=== PATIENT | female | born 1990 | race African-American/Black ===

== ENCOUNTER 2017-04-27 07:23 | Inpatient (IN) | payer MEDICAID, OTHER ==
[~2017-04-27] VITALS: Ht 162.6 cm; Wt 99.8 kg
[2017-04-27] MEDS ORDERED: MAGNESIUM/ALUMINUM HYDROXIDE/SIMETHICONE 30ML UDC PO STA (09:03)
[2017-04-27] MEDS ORDERED: VISCOUS LIDOCAINE 2% 15 ML UDC PO STA (09:03)
[2017-04-27] MEDS ORDERED: FAMOTIDINE 20MG/2ML VIAL IV STA (09:03)
[2017-04-27] MEDS ORDERED: ONDANSETRON HCL 4MG/2ML VIAL IV STA (09:03)
[2017-04-27] MEDS ORDERED: PANTOPRAZOLE SODIUM 40 MG/VIAL IV STA (09:03)
[2017-04-27] MEDS ORDERED: SODIUM CHLORIDE 0.9% 1,000 ML IV ONE ×2 (09:03→10:45)
[2017-04-27 09:28] LABS: BASOPHILS % 0.4 % (0.0-2.0); EOSINOPHILS % 0.1 % (0.0-5.0); HEMATOCRIT. 40.3 % (36.0-48.0); HEMOGLOBIN. 13.7 g/dL (12.0-16.0); LYMPHOCYTES % 14.8 % (20.0-50.0); MEAN CORPUSCULAR VOLUME 94.3 fL (81.0-99.0); MEAN PLATELET VOLUME 7.9 fl (7.4-10.4); MONOCYTES % 13.1 % (2.0-8.0); NEUTROPHILS % 71.6 % (40.0-76.0); PLATELET 240 x1000/uL (130-400); RED BLOOD CELL COUNT 4.28 mill/uL (4.2-5.4); RED CELL DISTRIBUTION WIDTH 14.1 % (11.6-14.6)
[2017-04-27 09:31] LABS: CHLORIDE 105 mEq/L (98-107)
[2017-04-27 09:39] LABS: CARBON DIOXIDE 23 mEq/L (21-32)
[2017-04-27 09:40] LABS: ETHANOL BLOOD < 10 mg/dL
[2017-04-27 09:50] LABS: CLARITY URINE CLOUDY (CLEAR); COLOR URINE DARK YELLOW (YELLOW); GLUCOSE URINE NEGATIVE (NEGATIVE); KETONES URINE 3+ (NEGATIVE); LEUKOCYTE ESTERASE URINE NEGATIVE (NEGATIVE); NITRITE URINE NEGATIVE (NEGATIVE); OCCULT BLOOD URINE 3+ (NEGATIVE); PROTEIN URINE 2+ (NEGATIVE)
[2017-04-27] MEDS ORDERED: ONDANSETRON HCL 4MG/2ML VIAL IV ONE (10:45)
[2017-04-27] MEDS ORDERED: DEXT 5%/0.45% NACL 500 ML IV ONE (10:45)
[2017-04-27] MEDS ORDERED: METOCLOPRAMIDE HCL 10MG TABLET PO ONE (12:45)
[2017-04-27 15:45] VITALS: BP 134/80
[2017-04-27 16:00] VITALS: BP 134/80
[2017-04-27] MEDS: SODIUM CHLORIDE 0.9% 1,000 ML IV SCH (17:45)
[2017-04-27] MEDS ORDERED: POTASSIUM CHLORIDE 20MEQ TABLET SR PO NR (17:45)
[2017-04-27] MEDS: METOCLOPRAMIDE HCL 10MG/2ML VIAL IV SCH ×2 (18:40→23:37)
[2017-04-27] MEDS ORDERED: OMEP40CA34 PO (19:35)
[2017-04-27] MEDS ORDERED: METO-293 PO (19:35)
[2017-04-27 20:00] VITALS: BP 107/66
[2017-04-27] MEDS: CEFTRIAXONE 1 G PREMIX 50 ML IV SCH (20:50)
[2017-04-27] MEDS: ENOXAPARIN 30MG/0.3ML SYR SUBCUT SCH (20:50)
[2017-04-27] MEDS ORDERED: KCL 20MEQ/100ML PREMIX 100 ML IV NR (21:00)
[2017-04-28] VITALS: BP 135/83
[2017-04-28 00:53] LABS: *AMPHETAMINES SCREEN URINE NEGATIVE (NEGATIVE); *BARBITURATES SCREEN URINE NEGATIVE (NEGATIVE); *BENZODIAZEPINES SCREEN URINE NEGATIVE (NEGATIVE); *COCAINE SCREEN URINE NEGATIVE (NEGATIVE); METHADONE URINE SCREEN NEGATIVE (NEGATIVE); OPIATES URINE SCREEN NEGATIVE (NEGATIVE); PHENCYCLIDINE URINE SCREEN NEGATIVE (NEGATIVE)
[2017-04-28 01:17] LABS: CANNABINOID URINE SCREEN PRESUMTIVE POSITIVE (NEGATIVE)
[2017-04-28 04:00] VITALS: BP 122/76
[2017-04-28] MEDS: MORPHINE SULFATE 2 MG/ML CPJ (NOT FOR IM USE) IV PRN ×3 (06:13→17:34)
[2017-04-28] MEDS: METOCLOPRAMIDE HCL 10MG/2ML VIAL IV SCH ×4 (06:15→23:20)
[2017-04-28] MEDS: SODIUM CHLORIDE 0.9% 1,000 ML IV SCH (06:16)
[2017-04-28 08:00] VITALS: BP 115/67
[2017-04-28] MEDS ORDERED: PANTOPRAZOLE SODIUM 40 MG/VIAL IV SCH (09:00)
[2017-04-28] MEDS: ENOXAPARIN 30MG/0.3ML SYR SUBCUT SCH ×2 (09:16→21:10)
[2017-04-28 12:00] VITALS: BP 128/72
[2017-04-28] MEDS ORDERED: POTASSIUM CHLORIDE 20MEQ TABLET SR PO NR (14:30)
[2017-04-28 16:00] VITALS: BP 125/86
[2017-04-28 20:00] VITALS: BP 138/85
[2017-04-28] MEDS: CEFTRIAXONE 1 G PREMIX 50 ML IV SCH (21:09)
[2017-04-28] MEDS: PANTOPRAZOLE SODIUM 40 MG/VIAL IV SCH (21:10)
[2017-04-29] VITALS: BP 103/70
[2017-04-29 04:00] VITALS: BP 131/73
[2017-04-29] MEDS: METOCLOPRAMIDE HCL 10MG/2ML VIAL IV SCH ×3 (05:49→18:14)
[2017-04-29 08:00] VITALS: BP 139/74
[2017-04-29] MEDS: PANTOPRAZOLE SODIUM 40 MG/VIAL IV SCH ×2 (09:09→21:23)
[2017-04-29] MEDS: ENOXAPARIN 30MG/0.3ML SYR SUBCUT SCH ×2 (09:09→21:23)
[2017-04-29] MEDS: SODIUM CHLORIDE 0.9% 1,000 ML IV SCH ×2 (09:10→21:23)
[2017-04-29] MEDS: MORPHINE SULFATE 2 MG/ML CPJ (NOT FOR IM USE) IV PRN ×2 (11:08→21:24)
[2017-04-29 12:00] VITALS: BP 114/71
[2017-04-29] MEDS ORDERED: SIMETHICONE 80MG TABLET CHEW PO PRN (12:45)
[2017-04-29] MEDS ORDERED: SIMETHICONE 80MG TABLET CHEW PO SCH (12:45)
[2017-04-29 16:00] VITALS: BP 126/80
[2017-04-29 20:00] VITALS: BP 113/52
[2017-04-29 20:03] LABS: HCG SCREEN NEGATIVE
[2017-04-29] MEDS: CEFTRIAXONE 1 G PREMIX 50 ML IV SCH (21:24)
[2017-04-30] VITALS: BP 97/70
[2017-04-30] MEDS: METOCLOPRAMIDE HCL 10MG/2ML VIAL IV SCH ×2 (00:01→05:45)
[2017-04-30 04:00] VITALS: BP 118/76
[2017-04-30] MEDS: ENOXAPARIN 30MG/0.3ML SYR SUBCUT SCH (09:48)
[2017-04-30] MEDS: PANTOPRAZOLE SODIUM 40 MG/VIAL IV SCH (09:48)
[2017-04-30] MEDS ORDERED: MY80 PO (10:40)
[2017-04-30 10:44] VITALS: BP 115/78
== END 2017-04-30 12:50 | disposition home or self-care (01) | DRG 241 ==
LOC: ER 07:51 → 6EST 12:53 → ENRESERV 13:38
PROVIDERS: ADMIT Internal Medicine; ATTEND Internal Medicine
DX: K29.50 Unspecified chronic gastritis without bleeding (principal); N39.0 Urinary tract infection, site not specified; D72.821 Monocytosis (symptomatic); E87.6 Hypokalemia; F12.90 Cannabis use, unspecified, uncomplicated; J45.909 Unspecified asthma, uncomplicated; K21.9 Gastro-esophageal reflux disease without esophagitis; K44.9 Diaphragmatic hernia without obstruction or gangrene; F41.9 Anxiety disorder, unspecified; Z80.49 Family history of malignant neoplasm of other genital organs; Z86.19 Personal history of other infectious and parasitic diseases
CPT/HCPCS: 36415; 74000; 76705; 80053; 80305; 81001; 83690; 84484; 84703; 85025; 87040; 87086; 93005; 93970; 99285; C1893; C9113; G0378; G0482; J0696; J1650; J2270; J2405; J2765; J3480; J3490; J7030

== ENCOUNTER 2017-08-19 07:43 | Inpatient (IN) | payer MEDICAID ==
[~2017-08-19] VITALS: Ht 162.6 cm; Wt 73.0 kg
[~2017-08-19 07:43] MED LIST: METO-293 PO; MY80 PO; OMEP40CA34 PO
[2017-08-19] MEDS ORDERED: ONDANSETRON HCL 4MG/2ML VIAL IV STA (08:56)
[2017-08-19] MEDS ORDERED: FAMOTIDINE 20MG/2ML VIAL IV STA (08:56)
[2017-08-19] MEDS ORDERED: SODIUM CHLORIDE 0.9% 1,000 ML IV ONE (08:56)
[2017-08-19] MEDS ORDERED: KETOROLAC 30MG/ML VIAL IV STA (08:56)
[2017-08-19 09:53] LABS: BASOPHILS % 0.8 % (0.0-2.0); EOSINOPHILS % 0.5 % (0.0-5.0); HEMATOCRIT. 41.4 % (36.0-48.0); HEMOGLOBIN. 13.8 g/dL (12.0-16.0); LYMPHOCYTES % 16.3 % (20.0-50.0); MEAN CORPUSCULAR HEMOGLOBIN 31.5 pg (28.0-32.0); MEAN CORPUSCULAR VOLUME 94.5 fL (81.0-99.0); MEAN PLATELET VOLUME 8.3 fl (7.4-10.4); MONOCYTES % 4.7 % (2.0-8.0); NEUTROPHILS % 77.7 % (40.0-76.0); PLATELET 263 x1000/uL (130-400); RED BLOOD CELL COUNT 4.39 mill/uL (4.2-5.4)
[2017-08-19 09:59] LABS: CHLORIDE 106 mEq/L (98-107)
[2017-08-19 10:04] LABS: HCG SCREEN NEGATIVE
[2017-08-19 10:07] LABS: CARBON DIOXIDE 25 mEq/L (21-32); ETHANOL BLOOD < 10 mg/dL
[2017-08-19] MEDS ORDERED: METOCLOPRAMIDE HCL 10MG/2ML VIAL IV ONE (10:30)
[2017-08-19 11:24] LABS: CLARITY URINE CLEAR (CLEAR); COLOR URINE YELLOW (YELLOW); GLUCOSE URINE NEGATIVE (NEGATIVE); KETONES URINE NEGATIVE (NEGATIVE); LEUKOCYTE ESTERASE URINE NEGATIVE (NEGATIVE); NITRITE URINE NEGATIVE (NEGATIVE); OCCULT BLOOD URINE 2+ (NEGATIVE); PH URINE >=9.0 (4.5-8.0); PROTEIN URINE TRACE (NEGATIVE); SPECIFIC GRAVITY URINE 1.018 (1.005-1.030); UROBILINOGEN URINE 0.2 E.U./dL (0.2-1.0)
[2017-08-19 11:54] LABS: *AMPHETAMINES SCREEN URINE NEGATIVE (NEGATIVE); *BARBITURATES SCREEN URINE NEGATIVE (NEGATIVE); *BENZODIAZEPINES SCREEN URINE NEGATIVE (NEGATIVE); *COCAINE SCREEN URINE NEGATIVE (NEGATIVE); METHADONE URINE SCREEN NEGATIVE (NEGATIVE); OPIATES URINE SCREEN NEGATIVE (NEGATIVE); PHENCYCLIDINE URINE SCREEN NEGATIVE (NEGATIVE)
[2017-08-19 12:00] LABS: CANNABINOID URINE SCREEN PRESUMTIVE POSITIVE (NEGATIVE)
[2017-08-19 13:00] VITALS: BP 111/49
[2017-08-19 14:10] VITALS: BP 111/49
[2017-08-19] MEDS ORDERED: DIPHENHYDRAMINE 50MG/ML VIAL IV PRN (14:15)
[2017-08-19] MEDS ORDERED: CLONIDINE 0.1MG TABLET PO PRN (14:15)
[2017-08-19] MEDS ORDERED: ACETAMINOPHEN 325MG TABLET PO PRN (14:15)
[2017-08-19] MEDS ORDERED: IPRATROPIUM/ALBUTEROL 0.5-3(2.5)MG/3ML NEB INH PRN (14:15)
[2017-08-19 16:07] VITALS: BP 121/68
[2017-08-19] MEDS ORDERED: POTASSIUM CHLORIDE INJ 40 MEQ in DEXT 5% WATER 500 ML IV NR (16:30)
[2017-08-19] MEDS: METOCLOPRAMIDE HCL 10MG/2ML VIAL IV SCH ×2 (17:13→20:47)
[2017-08-19] MEDS: SODIUM CHLORIDE 0.9% 1,000 ML IV SCH (17:16)
[2017-08-19 20:00] VITALS: BP 120/69
[2017-08-19] MEDS: MORPHINE SULFATE 4 MG/ML CPJ (NOT FOR IM USE) IV PRN (20:48)
[2017-08-19] MEDS: HYDROCODONE/ACETAMINOPHEN 5/325MG TABLET PO PRN (22:49)
[2017-08-20] VITALS: BP 125/81
[2017-08-20] MEDS: METOCLOPRAMIDE HCL 10MG/2ML VIAL IV SCH ×5 (02:41→21:36)
[2017-08-20] MEDS: MORPHINE SULFATE 4 MG/ML CPJ (NOT FOR IM USE) IV PRN ×3 (02:42→12:37)
[2017-08-20 04:00] VITALS: BP 123/83
[2017-08-20] MEDS: SODIUM CHLORIDE 0.9% 1,000 ML IV SCH ×2 (04:58→10:12)
[2017-08-20] MEDS: HYDROCODONE/ACETAMINOPHEN 5/325MG TABLET PO PRN (04:59)
[2017-08-20] MEDS: ONDANSETRON HCL 4MG/2ML VIAL IV PRN ×3 (06:51→21:36)
[2017-08-20 06:55] LABS: BASOPHILS % 0.2 % (0.0-2.0); HEMATOCRIT. 38.2 % (36.0-48.0); LYMPHOCYTES % 10.7 % (20.0-50.0); MEAN CORPUSCULAR HEMOGLOBIN 31.9 pg (28.0-32.0); MEAN CORPUSCULAR VOLUME 93.8 fL (81.0-99.0); MEAN PLATELET VOLUME 8.3 fl (7.4-10.4); MONOCYTES % 5.6 % (2.0-8.0); NEUTROPHILS % 83.5 % (40.0-76.0); PLATELET 241 x1000/uL (130-400); RED BLOOD CELL COUNT 4.07 mill/uL (4.2-5.4); RED CELL DISTRIBUTION WIDTH 13.4 % (11.6-14.6)
[2017-08-20 07:55] LABS: CARBON DIOXIDE 24 mEq/L (21-32); CHLORIDE 103 mEq/L (98-107)
[2017-08-20 08:00] VITALS: BP 117/71
[2017-08-20 12:00] VITALS: BP 112/69
[2017-08-20] MEDS ORDERED: POTASSIUM CHLORIDE INJ 40 MEQ in DEXT 5% WATER 500 ML IV SCH (12:00)
[2017-08-20] MEDS: PANTOPRAZOLE SODIUM 40 MG/VIAL IV SCH (12:29)
[2017-08-20 16:00] VITALS: BP 114/60
[2017-08-20 20:00] VITALS: BP 125/83
[2017-08-21] VITALS: BP 133/76
[2017-08-21] MEDS: ONDANSETRON HCL 4MG/2ML VIAL IV PRN ×2 (03:06→21:34)
[2017-08-21] MEDS: METOCLOPRAMIDE HCL 10MG/2ML VIAL IV SCH ×4 (03:06→21:17)
[2017-08-21 06:52] LABS: BASOPHILS % 0.4 % (0.0-2.0); HEMATOCRIT. 41.2 % (36.0-48.0); HEMOGLOBIN. 14.3 g/dL (12.0-16.0); LYMPHOCYTES % 15.6 % (20.0-50.0); MEAN CORPUSCULAR HEMOGLOBIN 32.4 pg (28.0-32.0); MEAN CORPUSCULAR VOLUME 93.1 fL (81.0-99.0); MEAN PLATELET VOLUME 8.5 fl (7.4-10.4); MONOCYTES % 9.7 % (2.0-8.0); NEUTROPHILS % 74.3 % (40.0-76.0); PLATELET 237 x1000/uL (130-400); RED BLOOD CELL COUNT 4.42 mill/uL (4.2-5.4); RED CELL DISTRIBUTION WIDTH 13.3 % (11.6-14.6)
[2017-08-21 07:40] LABS: CARBON DIOXIDE 27 mEq/L (21-32); CHLORIDE 102 mEq/L (98-107)
[2017-08-21 08:00] VITALS: BP 128/74
[2017-08-21] MEDS: MORPHINE SULFATE 4 MG/ML CPJ (NOT FOR IM USE) IV PRN (09:25)
[2017-08-21] MEDS: PANTOPRAZOLE SODIUM 40 MG/VIAL IV SCH (09:26)
[2017-08-21] MEDS ORDERED: LIDOCAINE HCL 20 MG/ML 100ML BOTTLE PO PRN (11:45)
[2017-08-21] MEDS ORDERED: MAGNESIUM/ALUMINUM HYDROXIDE/SIMETHICONE 30ML UDC PO PRN ×2 (11:45→13:15)
[2017-08-21] MEDS ORDERED: POTASSIUM CHLORIDE 20MEQ TABLET SR PO NR (11:45)
[2017-08-21] MEDS ORDERED: DICYCLOMINE HCL 10MG CAPSULE PO PRN ×2 (11:45→13:15)
[2017-08-21 12:00] VITALS: BP 133/73
[2017-08-21 16:00] VITALS: BP 132/76
[2017-08-21] MEDS: SODIUM CHLORIDE 0.9% 1,000 ML IV SCH (17:13)
[2017-08-21 20:00] VITALS: BP 130/80
[2017-08-22] VITALS: BP 118/76
[2017-08-22] MEDS: SODIUM CHLORIDE 0.9% 1,000 ML IV SCH ×2 (02:04→11:20)
[2017-08-22] MEDS: METOCLOPRAMIDE HCL 10MG/2ML VIAL IV SCH ×3 (04:06→16:04)
[2017-08-22 05:39] LABS: BASOPHILS % 0.6 % (0.0-2.0); EOSINOPHILS % 0.2 % (0.0-5.0); HEMATOCRIT. 42.1 % (36.0-48.0); HEMOGLOBIN. 14.5 g/dL (12.0-16.0); LYMPHOCYTES % 24.5 % (20.0-50.0); MEAN CORPUSCULAR HEMOGLOBIN 32.3 pg (28.0-32.0); MEAN CORPUSCULAR VOLUME 93.7 fL (81.0-99.0); MEAN PLATELET VOLUME 8.3 fl (7.4-10.4); MONOCYTES % 10.1 % (2.0-8.0); NEUTROPHILS % 64.6 % (40.0-76.0); PLATELET 257 x1000/uL (130-400); RED CELL DISTRIBUTION WIDTH 13.3 % (11.6-14.6)
[2017-08-22 06:32] LABS: CARBON DIOXIDE 27 mEq/L (21-32); CHLORIDE 102 mEq/L (98-107)
[2017-08-22 08:00] VITALS: BP 128/76
[2017-08-22] MEDS: PANTOPRAZOLE SODIUM 40 MG/VIAL IV SCH (09:07)
[2017-08-22 12:00] VITALS: BP 134/70
[2017-08-22] MEDS ORDERED: POTASSIUM CHLORIDE 20MEQ TABLET SR PO NR (14:30)
[2017-08-22 16:29] VITALS: BP 134/70
== END 2017-08-22 17:11 | disposition home or self-care (01) | DRG 243 ==
LOC: ER 07:43 → 6EST 13:05 → ENRESERV 13:15
PROVIDERS: ADMIT Internal Medicine; ATTEND Internal Medicine
DX: K21.9 Gastro-esophageal reflux disease without esophagitis (principal); E87.6 Hypokalemia; D72.821 Monocytosis (symptomatic); R10.13 Epigastric pain; R11.2 Nausea with vomiting, unspecified; K44.9 Diaphragmatic hernia without obstruction or gangrene; F12.90 Cannabis use, unspecified, uncomplicated; F41.9 Anxiety disorder, unspecified; J45.909 Unspecified asthma, uncomplicated; Z79.899 Other long term (current) drug therapy; Z88.8 Allergy status to other drugs, medicaments and biological substances
CPT/HCPCS: 36415; 80048; 80053; 80305; 81001; 83690; 84703; 85025; 87040; 87086; 96361; 96374; 96375; 99285; C9113; G0482; J1885; J2270; J2405; J2765; J3480; J3490; J7030; J7060

== ENCOUNTER 2018-12-09 09:26 | Inpatient (IN) | payer MEDICAID ==
[~2018-12-09] VITALS: Ht 162.6 cm; Wt 59.9 kg
[2018-12-09] MEDS ORDERED: ONDANSETRON HCL 4MG/2ML INJ IV STA (10:20)
[2018-12-09] MEDS ORDERED: PANTOPRAZOLE SODIUM 40 MG/VIAL IV STA (10:20)
[2018-12-09] MEDS ORDERED: FAMOTIDINE 20MG/2ML VIAL IV STA (10:20)
[2018-12-09] MEDS ORDERED: VISCOUS LIDOCAINE 2% 15 ML UDC PO STA (10:20)
[2018-12-09] MEDS ORDERED: MAGNESIUM/ALUMINUM HYDROXIDE/SIMETHICONE 30ML UDC PO STA (10:20)
[2018-12-09 10:41] LABS: BASOPHILS % 0.3 % (0.0-2.0); EOSINOPHILS % 0.1 % (0.0-5.0); HEMATOCRIT. 42.3 % (36.0-48.0); HEMOGLOBIN. 13.8 g/dL (12.0-16.0); LYMPHOCYTES % 9.8 % (20.0-50.0); MEAN CORPUSCULAR HEMOGLOBIN 32.2 pg (28.0-32.0); MEAN CORPUSCULAR VOLUME 98.4 fL (81.0-99.0); MEAN PLATELET VOLUME 8.1 fl (7.4-10.4); MONOCYTES % 4.4 % (2.0-8.0); NEUTROPHILS % 85.4 % (40.0-76.0); PLATELET 266 x1000/uL (130-400); RED CELL DISTRIBUTION WIDTH 13.7 % (11.6-14.6)
[2018-12-09 10:45] LABS: CHLORIDE 109 mEq/L (98-107)
[2018-12-09 11:00] LABS: HCG SCREEN NEGATIVE
[2018-12-09 11:57] LABS: CLARITY URINE CLEAR (CLEAR); COLOR URINE YELLOW (YELLOW); KETONES URINE NEGATIVE (NEGATIVE); LEUKOCYTE ESTERASE URINE NEGATIVE (NEGATIVE); NITRITE URINE NEGATIVE (NEGATIVE); OCCULT BLOOD URINE 3+ (NEGATIVE); PH URINE >=9.0 (4.5-8.0); PROTEIN URINE NEGATIVE (NEGATIVE); SPECIFIC GRAVITY URINE 1.014 (1.005-1.030); UROBILINOGEN URINE 0.2 E.U./dL (0.2-1.0)
[2018-12-09] MEDS ORDERED: ONDANSETRON HCL 4MG/2ML INJ IV ONE (12:30)
[2018-12-09] MEDS ORDERED: METOCLOPRAMIDE HCL 10MG/2ML VIAL IV ONE (13:15)
[2018-12-09] MEDS ORDERED: DIPHENHYDRAMINE 50MG/ML VIAL IV ONE (13:45)
[2018-12-09] MEDS ORDERED: ACETAMINOPHEN 325MG TABLET PO PRN (17:30)
[2018-12-09] MEDS ORDERED: IOHEXOL-300 100 ML BOTTLE ONE (19:40)
[2018-12-09 22:55] VITALS: BP 118/57
[2018-12-10] VITALS: BP 128/74
[2018-12-10 04:00] VITALS: BP 116/69
[2018-12-10] MEDS: ONDANSETRON HCL 4MG/2ML INJ IV PRN ×2 (05:03→09:57)
[2018-12-10 06:30] LABS: BASOPHILS % 0.3 % (0.0-2.0); HEMATOCRIT. 39.4 % (36.0-48.0); HEMOGLOBIN. 13.2 g/dL (12.0-16.0); MEAN CORPUSCULAR HEMOGLOBIN 32.2 pg (28.0-32.0); MEAN CORPUSCULAR VOLUME 95.8 fL (81.0-99.0); MEAN PLATELET VOLUME 8.4 fl (7.4-10.4); MONOCYTES % 4.9 % (2.0-8.0); NEUTROPHILS % 86.8 % (40.0-76.0); PLATELET 264 x1000/uL (130-400); RED BLOOD CELL COUNT 4.11 mill/uL (4.2-5.4); RED CELL DISTRIBUTION WIDTH 13.5 % (11.6-14.6)
[2018-12-10 06:36] LABS: CHLORIDE 104 mEq/L (98-107)
[2018-12-10] MEDS: OMEPRAZOLE 20MG CAPSULE EXTENDED RELEASE PO SCH ×2 (07:03→08:00)
[2018-12-10 08:00] VITALS: BP 125/70
[2018-12-10] MEDS ORDERED: POTASSIUM CHLORIDE 20MEQ TABLET SR PO SCH (08:30)
[2018-12-10 12:00] VITALS: BP 130/80
[2018-12-10] MEDS: HYDROMORPHONE HCL/PF 2MG/ML CPJ IV PRN (12:46)
[2018-12-10] MEDS: DEXT 5%/0.45% NACL KCL 20MEQ/L 1,000 ML IV SCH ×2 (13:58→23:37)
[2018-12-10 16:00] VITALS: BP 130/70
[2018-12-10] MEDS: METOCLOPRAMIDE HCL 10MG/2ML VIAL IV SCH ×2 (17:06→23:37)
[2018-12-10 20:00] VITALS: BP 125/72
[2018-12-11] VITALS (7 sets, daily range): BP systolic 97–130; BP diastolic 50–92
[2018-12-11 00:41] LABS: HEMATOCRIT 40.8 % (36.0-48.0); HEMOGLOBIN 13.7 g/dL (12.0-16.0); MEAN CORPUSCULAR HEMOGLOBIN 32.3 pg (28.0-32.0); MEAN CORPUSCULAR VOLUME 96.1 fL (81.0-99.0); PLATELET 267 x1000/uL (130-400); RED BLOOD CELL COUNT 4.24 mill/uL (4.2-5.4); RED CELL DISTRIBUTION WIDTH 13.9 % (11.6-14.6)
[2018-12-11] MEDS: ONDANSETRON HCL 4MG/2ML INJ IV PRN ×3 (00:55→19:59)
[2018-12-11] MEDS: HYDROMORPHONE HCL/PF 2MG/ML CPJ IV PRN ×2 (01:01→20:00)
[2018-12-11] MEDS: METOCLOPRAMIDE HCL 10MG/2ML VIAL IV SCH ×3 (06:05→18:00)
[2018-12-11] MEDS: PANTOPRAZOLE SODIUM 40 MG/VIAL IV SCH (08:59)
[2018-12-11] MEDS: DEXT 5%/0.45% NACL KCL 20MEQ/L 1,000 ML IV SCH ×2 (08:59→17:59)
[2018-12-11] MEDS ORDERED: ALPRAZOLAM 0.25 MG TABLET PO PRN (16:15)
[2018-12-11] MEDS ORDERED: PROCHLORPERAZINE MALEATE 25MG SUPP PR PRN (18:00)
[2018-12-11] MEDS: FAMOTIDINE 20MG/2ML VIAL IV SCH (20:00)
[2018-12-12] VITALS: BP 90/49
[2018-12-12] MEDS: METOCLOPRAMIDE HCL 10MG/2ML VIAL IV SCH ×3 (00:13→11:34)
[2018-12-12] MEDS: DEXT 5%/0.45% NACL KCL 20MEQ/L 1,000 ML IV SCH (03:54)
[2018-12-12 04:00] VITALS: BP 87/43
[2018-12-12 07:08] LABS: BASOPHILS % 0.6 % (0.0-2.0); EOSINOPHILS % 0.8 % (0.0-5.0); HEMATOCRIT. 39.4 % (36.0-48.0); HEMOGLOBIN. 13.4 g/dL (12.0-16.0); LYMPHOCYTES % 37.1 % (20.0-50.0); MEAN CORPUSCULAR HEMOGLOBIN 32.6 pg (28.0-32.0); MEAN CORPUSCULAR VOLUME 95.8 fL (81.0-99.0); MONOCYTES % 13.1 % (2.0-8.0); NEUTROPHILS % 48.4 % (40.0-76.0); PLATELET 263 x1000/uL (130-400); RED BLOOD CELL COUNT 4.11 mill/uL (4.2-5.4); RED CELL DISTRIBUTION WIDTH 13.2 % (11.6-14.6)
[2018-12-12 07:12] LABS: CHLORIDE 104 mEq/L (98-107)
[2018-12-12 08:00] VITALS: BP_SYST 87; BP_SYST 93; BP_DIAS 58; BP_DIAS 62
[2018-12-12] MEDS: PANTOPRAZOLE SODIUM 40 MG/VIAL IV SCH (08:23)
[2018-12-12] MEDS: FAMOTIDINE 20MG/2ML VIAL IV SCH (08:24)
[2018-12-12 12:00] VITALS: BP_SYST 103; BP_SYST 93; BP_DIAS 50; BP_DIAS 58
== END 2018-12-12 15:00 | disposition home or self-care (01) | DRG 241 ==
LOC: ER 09:26 → 6EST 17:27 → EDBEDREQ 17:31 → ENRESERV 18:51 → 6EST 23:07
PROVIDERS: ADMIT Internal Medicine; ATTEND Internal Medicine
DX: K29.70 Gastritis, unspecified, without bleeding (principal); E87.8 Other disorders of electrolyte and fluid balance, not elsewhere classified; K27.9 Peptic ulcer, site unspecified, unspecified as acute or chronic, without hemorrhage or perforation; K21.9 Gastro-esophageal reflux disease without esophagitis; F41.9 Anxiety disorder, unspecified; E87.6 Hypokalemia; D72.829 Elevated white blood cell count, unspecified; J45.909 Unspecified asthma, uncomplicated; K57.30 Diverticulosis of large intestine without perforation or abscess without bleeding; K44.9 Diaphragmatic hernia without obstruction or gangrene; K42.9 Umbilical hernia without obstruction or gangrene; F12.90 Cannabis use, unspecified, uncomplicated; F17.200 Nicotine dependence, unspecified, uncomplicated; Z79.899 Other long term (current) drug therapy; Z88.8 Allergy status to other drugs, medicaments and biological substances
CPT/HCPCS: 36415; 71045; 74177; 76705; 80048; 84703; 85027; 93005; 96374; 99285; C9113; J1170; J1200; J2405; J2765; J3490; Q9967

== ENCOUNTER 2019-01-10 07:13 | Emergency (ER) | payer MEDICAID ==
[~2019-01-10] VITALS: Ht 162.6 cm; Wt 72.3 kg
[2019-01-10] MEDS ORDERED: SODIUM CHLORIDE 0.9% 1,000 ML IV ONE (09:11)
[2019-01-10] MEDS ORDERED: MAGNESIUM/ALUMINUM HYDROXIDE/SIMETHICONE 30ML UDC PO STA (09:11)
[2019-01-10] MEDS ORDERED: FAMOTIDINE 20MG/2ML VIAL IV STA (09:11)
[2019-01-10] MEDS ORDERED: ONDANSETRON HCL 4MG/2ML INJ IV STA (09:11)
[2019-01-10] MEDS ORDERED: VISCOUS LIDOCAINE 2% 15 ML UDC PO STA (09:11)
[2019-01-10 10:35] LABS: BASOPHILS % 0.2 % (0.0-2.0); EOSINOPHILS % 0.1 % (0.0-5.0); HEMATOCRIT. 43.6 % (36.0-48.0); HEMOGLOBIN. 14.7 g/dL (12.0-16.0); LYMPHOCYTES % 8.7 % (20.0-50.0); MEAN CORPUSCULAR HEMOGLOBIN 32.4 pg (28.0-32.0); MEAN CORPUSCULAR VOLUME 96.2 fL (81.0-99.0); MEAN PLATELET VOLUME 8.9 fl (7.4-10.4); MONOCYTES % 6.8 % (2.0-8.0); NEUTROPHILS % 84.2 % (40.0-76.0); PLATELET 233 x1000/uL (130-400); RED BLOOD CELL COUNT 4.53 mill/uL (4.2-5.4); RED CELL DISTRIBUTION WIDTH 13.4 % (11.6-14.6)
[2019-01-10 10:39] LABS: CHLORIDE 105 mEq/L (98-107); INR 1.2; PROTHROMBIN TIME 11.7 sec (9.1-11.1)
[2019-01-10] MEDS ORDERED: POTASSIUM CHLORIDE 20MEQ TABLET SR PO ONE (10:45)
[2019-01-10 10:59] LABS: HCG SCREEN NEGATIVE
[2019-01-10] MEDS ORDERED: METOCLOPRAMIDE HCL 10MG/2ML VIAL IV ONE (11:00)
[2019-01-10] MEDS ORDERED: DIPHENHYDRAMINE 50MG/ML VIAL IV ONE (11:00)
[2019-01-10 11:10] LABS: CLARITY URINE CLEAR (CLEAR); COLOR URINE YELLOW (YELLOW); KETONES URINE 3+ (NEGATIVE); LEUKOCYTE ESTERASE URINE NEGATIVE (NEGATIVE); NITRITE URINE NEGATIVE (NEGATIVE); OCCULT BLOOD URINE 2+ (NEGATIVE); PROTEIN URINE 1+ (NEGATIVE); SPECIFIC GRAVITY URINE 1.037 (1.005-1.030); UROBILINOGEN URINE 0.2 E.U./dL (0.2-1.0)
[2019-01-10] MEDS ORDERED: CEFTRIAXONE 1 G PREMIX 50 ML IV ONE (11:45)
[2019-01-10 14:44] VITALS: BP 106/56
== END 2019-01-10 14:44 | disposition home or self-care (01) ==
LOC: ER 07:28
DX: K29.70 Gastritis, unspecified, without bleeding (principal); E87.6 Hypokalemia; F41.9 Anxiety disorder, unspecified; J45.909 Unspecified asthma, uncomplicated; K21.9 Gastro-esophageal reflux disease without esophagitis; F12.10 Cannabis abuse, uncomplicated; Z88.6 Allergy status to analgesic agent
CPT/HCPCS: 36415; 80053; 81003; 81025; 83690; 84703; 85025; 85610; 87086; 96361; 96374; 96375; 99284; J1200; J2405; J2765; J3490; J7030; Z7610

== ENCOUNTER 2019-01-10 21:39 | Inpatient (IN) | payer MEDICAID, OTHER ==
[~2019-01-10] VITALS: Ht 160 cm; Wt 74.8 kg
[2019-01-11] MEDS ORDERED: SODIUM CHLORIDE 0.9% 1,000 ML IV ONE ×2 (02:01→07:13)
[2019-01-11] MEDS ORDERED: MORPHINE SULFATE 4 MG/ML CPJ (NOT FOR IM USE) IV STA (02:01)
[2019-01-11] MEDS ORDERED: METOCLOPRAMIDE HCL 10MG/2ML VIAL IV ONE (02:15)
[2019-01-11] MEDS ORDERED: LORAZEPAM 2MG/ML CPJ IV ONE (02:15)
[2019-01-11 02:39] LABS: BASOPHILS % 0.2 % (0.0-2.0); HEMATOCRIT. 43.1 % (36.0-48.0); HEMOGLOBIN. 14.6 g/dL (12.0-16.0); LYMPHOCYTES % 11.4 % (20.0-50.0); MEAN CORPUSCULAR HEMOGLOBIN 32.4 pg (28.0-32.0); MEAN CORPUSCULAR VOLUME 95.8 fL (81.0-99.0); MEAN PLATELET VOLUME 8.6 fl (7.4-10.4); MONOCYTES % 7.4 % (2.0-8.0); PLATELET 251 x1000/uL (130-400); RED BLOOD CELL COUNT 4.51 mill/uL (4.2-5.4); RED CELL DISTRIBUTION WIDTH 13.4 % (11.6-14.6)
[2019-01-11 02:46] LABS: CHLORIDE 105 mEq/L (98-107)
[2019-01-11 03:00] LABS: CLARITY URINE CLEAR (CLEAR); COLOR URINE YELLOW (YELLOW); KETONES URINE 4+ (NEGATIVE); LEUKOCYTE ESTERASE URINE NEGATIVE (NEGATIVE); NITRITE URINE NEGATIVE (NEGATIVE); OCCULT BLOOD URINE 2+ (NEGATIVE); PH URINE 5.5 (4.5-8.0); PROTEIN URINE 1+ (NEGATIVE); SPECIFIC GRAVITY URINE 1.036 (1.005-1.030); UROBILINOGEN URINE 0.2 E.U./dL (0.2-1.0)
[2019-01-11 03:46] LABS: *AMPHETAMINES SCREEN URINE NEGATIVE (NEGATIVE)
[2019-01-11 03:48] LABS: *BARBITURATES SCREEN URINE NEGATIVE (NEGATIVE); *BENZODIAZEPINES SCREEN URINE NEGATIVE (NEGATIVE); METHADONE URINE SCREEN NEGATIVE (NEGATIVE); OPIATES URINE SCREEN NEGATIVE (NEGATIVE); PHENCYCLIDINE URINE SCREEN NEGATIVE (NEGATIVE)
[2019-01-11 03:49] LABS: *COCAINE SCREEN URINE NEGATIVE (NEGATIVE)
[2019-01-11 04:00] LABS: CANNABINOID URINE SCREEN PRESUMTIVE POSITIVE (NEGATIVE)
[2019-01-11] MEDS ORDERED: POTASSIUM CHLORIDE 20MEQ TABLET SR PO ONE (04:15)
[2019-01-11] MEDS ORDERED: KETOROLAC 30MG/ML VIAL IV STA (07:13)
[2019-01-11] MEDS ORDERED: ONDANSETRON HCL 4MG/2ML INJ IV PRN ×2 (10:15→12:45)
[2019-01-11] MEDS ORDERED: IPRATROPIUM/ALBUTEROL 0.5-3(2.5)MG/3ML NEB INH PRN (12:45)
[2019-01-11] MEDS ORDERED: HYDROCODONE/ACETAMINOPHEN 5/325MG TABLET PO PRN (12:45)
[2019-01-11] MEDS ORDERED: LORAZEPAM 0.5MG TABLET PO PRN (12:45)
[2019-01-11] MEDS ORDERED: CLONIDINE 0.1MG TABLET PO PRN (12:45)
[2019-01-11] MEDS ORDERED: ACETAMINOPHEN 325MG TABLET PO PRN (12:45)
[2019-01-11] MEDS ORDERED: DOCUSATE SODIUM 100MG CAPSULE PO PRN (12:45)
[2019-01-11 14:47] LABS: LDL CHOLESTEROL 67 mg/dL (5-100)
[2019-01-11 14:48] LABS: CREATINE KINASE 110 IU/L (26-192); HDL CHOLESTEROL 41 mg/dL (40-59)
[2019-01-11 14:50] LABS: CREATINE KINASE MB FRACTION < 1.0 ng/mL (0.5-3.6)
[2019-01-11 15:04] LABS: HCG SCREEN NEGATIVE
[2019-01-11 20:00] VITALS: BP 104/51
[2019-01-11] MEDS ORDERED: SUCRALFATE 1 G/10 ML UDC PO SCH (21:00)
[2019-01-11] MEDS: PANTOPRAZOLE SODIUM 40 MG/VIAL IV SCH (21:09)
[2019-01-12] VITALS: BP 94/53
[2019-01-12 04:00] VITALS: BP 108/39
[2019-01-12 08:00] VITALS: BP 96/48
[2019-01-12 08:37] LABS: BASOPHILS % 0.5 % (0.0-2.0); EOSINOPHILS % 0.6 % (0.0-5.0); HEMOGLOBIN. 13.2 g/dL (12.0-16.0); LYMPHOCYTES % 28.9 % (20.0-50.0); MEAN CORPUSCULAR HEMOGLOBIN 32.3 pg (28.0-32.0); MEAN CORPUSCULAR VOLUME 95.4 fL (81.0-99.0); MEAN PLATELET VOLUME 8.3 fl (7.4-10.4); PLATELET 226 x1000/uL (130-400); RED BLOOD CELL COUNT 4.09 mill/uL (4.2-5.4); RED CELL DISTRIBUTION WIDTH 13.1 % (11.6-14.6)
[2019-01-12 08:48] LABS: CHLORIDE 108 mEq/L (98-107)
[2019-01-12] MEDS: PANTOPRAZOLE SODIUM 40 MG/VIAL IV SCH (08:56)
[2019-01-12] MEDS ORDERED: PANTOPRAZOLE SODIUM 40 MG/VIAL IV SCH (09:00)
[2019-01-12 12:00] VITALS: BP 96/60
[2019-01-12 15:58] VITALS: BP 99/49
== END 2019-01-12 19:05 | disposition left against medical advice (07) | DRG 249 ==
LOC: ER 21:39 → 6EST 01-11 08:08 → ENRESERV 01-11 14:43 → EDBEDREQ 01-11 17:25 → 6EST 01-11 19:09
PROVIDERS: ADMIT Internal Medicine; ATTEND Internal Medicine
DX: A08.4 Viral intestinal infection, unspecified (principal); E86.0 Dehydration; E87.6 Hypokalemia; F12.90 Cannabis use, unspecified, uncomplicated; F41.9 Anxiety disorder, unspecified; J45.20 Mild intermittent asthma, uncomplicated; K21.9 Gastro-esophageal reflux disease without esophagitis; K42.9 Umbilical hernia without obstruction or gangrene; Z86.19 Personal history of other infectious and parasitic diseases; Z87.11 Personal history of peptic ulcer disease; Z88.9 Allergy status to unspecified drugs, medicaments and biological substances; K57.90 Diverticulosis of intestine, part unspecified, without perforation or abscess without bleeding
CPT/HCPCS: 36415; 73562; 80048; 80061; 80305; 81025; 82550; 82553; 83036; 84443; 84484; 84703; 93005; 96374; 96375; 99285; C9113; J2060; J2270; J2405; J2765; J7030

== ENCOUNTER 2019-10-27 11:37 | Emergency (ER) | payer OTHER ==
[~2019-10-27] VITALS: Ht 160 cm; Wt 77.0 kg
[2019-10-27 16:07] LABS: CLARITY URINE CLEAR (CLEAR); COLOR URINE YELLOW (YELLOW); KETONES URINE NEGATIVE (NEGATIVE); LEUKOCYTE ESTERASE URINE 2+ (NEGATIVE); NITRITE URINE NEGATIVE (NEGATIVE); OCCULT BLOOD URINE 3+ (NEGATIVE); PROTEIN URINE NEGATIVE (NEGATIVE); SPECIFIC GRAVITY URINE 1.008 (1.005-1.030); UROBILINOGEN URINE 0.2 E.U./dL (0.2-1.0)
[2019-10-27] MEDS ORDERED: KETOROLAC 60MG/2ML VIAL IM ONE (18:15)
[2019-10-27 18:37] LABS: BASOPHILS % 0.6 % (0.0-2.0); HEMATOCRIT. 38.3 % (36.0-48.0); HEMOGLOBIN. 13.2 g/dL (12.0-16.0); LYMPHOCYTES % 34.2 % (20.0-50.0); MEAN CORPUSCULAR HEMOGLOBIN 33.2 pg (28.0-32.0); MEAN CORPUSCULAR VOLUME 96.4 fL (81.0-99.0); MEAN PLATELET VOLUME 7.8 fl (7.4-10.4); MONOCYTES % 9.4 % (2.0-8.0); NEUTROPHILS % 51.8 % (40.0-76.0); PLATELET 230 x1000/uL (130-400); RED BLOOD CELL COUNT 3.97 mill/uL (4.2-5.4); RED CELL DISTRIBUTION WIDTH 13.7 % (11.6-14.6)
[2019-10-27 18:53] LABS: CHLORIDE 106 mEq/L (98-107)
[2019-10-27 19:30] VITALS: BP 121/75
== END 2019-10-27 22:05 | disposition home or self-care (01) ==
LOC: ER 12:25
DX: N10 Acute pyelonephritis (principal); N93.9 Abnormal uterine and vaginal bleeding, unspecified; F12.90 Cannabis use, unspecified, uncomplicated
CPT/HCPCS: 36415; 76830; 76856; 80053; 81003; 81025; 85025; 86850; 86900; 86901; 99284; J1885; Z7610

== ENCOUNTER 2021-10-20 13:49 | Emergency (ER) | payer MEDICAID, OTHER ==
[~2021-10-20] VITALS: Ht 162.6 cm; Wt 80.0 kg
[~2021-10-20 13:49] MED LIST changes: -MY80 PO; +OMEP40CA20 PO; -OMEP40CA34 PO; +SIME80TA16 PO
[2021-10-20] MEDS ORDERED: METOCLOPRAMIDE HCL 10MG/2ML VIAL IV STA (15:49)
[2021-10-20] MEDS ORDERED: FAMOTIDINE 20MG/2ML VIAL IV STA (15:49)
[2021-10-20] MEDS ORDERED: MAGNESIUM/ALUMINUM HYDROXIDE/SIMETHICONE 30ML UDC PO STA (15:49)
[2021-10-20] MEDS ORDERED: SODIUM CHLORIDE 0.9% 1,000 ML IV ONE (16:00)
[2021-10-20 16:06] LABS: CHLORIDE 110 mEq/L (98-107)
[2021-10-20 16:11] LABS: HEMATOCRIT. 42.8 % (36.0-48.0); HEMOGLOBIN. 14.3 g/dL (12.0-16.0); MEAN CORPUSCULAR HEMOGLOBIN 32.5 pg (28.0-32.0); MEAN CORPUSCULAR VOLUME 97.4 fL (81.0-99.0); MEAN PLATELET VOLUME 9.3 fl (7.4-10.4); PLATELET 263 x1000/uL (130-400); RED BLOOD CELL COUNT 4.39 mill/uL (4.2-5.4); RED CELL DISTRIBUTION WIDTH 13.1 % (11.6-14.6)
[2021-10-20] MEDS ORDERED: KETOROLAC 15MG/ML VIAL IV ONE (16:30)
[2021-10-20 18:17] VITALS: BP 126/61
[2021-10-20 20:41] LABS: PLATELET ESTIMATE NORMAL
== END 2021-10-20 18:22 | disposition home or self-care (01) ==
LOC: ER 13:54
DX: R10.13 Epigastric pain (principal); R11.2 Nausea with vomiting, unspecified; E87.8 Other disorders of electrolyte and fluid balance, not elsewhere classified; F12.90 Cannabis use, unspecified, uncomplicated; R73.9 Hyperglycemia, unspecified; K29.70 Gastritis, unspecified, without bleeding; K21.9 Gastro-esophageal reflux disease without esophagitis; K27.9 Peptic ulcer, site unspecified, unspecified as acute or chronic, without hemorrhage or perforation; Z86.19 Personal history of other infectious and parasitic diseases; J45.909 Unspecified asthma, uncomplicated
CPT/HCPCS: 36415; 71045; 80053; 83690; 85025; 93005; 96361; 96374; 96375; 99285; J1885; J2765; J3490; J7030